=== PATIENT | male | born 1960 | race Hispanic/Latino ===

== ENCOUNTER 2022-04-07 21:12 | Emergency (ER) | END 2022-04-07 22:13 | disposition home or self-care (01) | LOC: ERS 21:12 | DX: S56.912A Strain of unspecified muscles, fascia and tendons at forearm level, left arm, initial encounter (principal); X50.9XXA Other and unspecified overexertion or strenuous movements or postures, initial encounter | CPT/HCPCS: 96372 ==

== ENCOUNTER 2023-10-15 07:58 | Day surgery (SDC) | payer BC ==
[2023-10-14 13:25] VITALS: BMI 27.4
[~2023-10-15 07:58] MED LIST: Fluorouracil 100 MG, Enoxaparin 25 MG, EPINEPHrine 0.3 MG in Ophthalmic Irrigation Solu... IRR SCH
[2023-10-15] MEDS ORDERED: PHENYLephrine 2.5% Ophth Soln 15 ml Bottle ONE (08:32)
[2023-10-15] MEDS ORDERED: Cyclopentolate 1% Opth Drop 2 ML BOT ONE (08:32)
[2023-10-15] MEDS ORDERED: Midazolam HCl 2 mg/2 ml Vial ONE (08:49)
[2023-10-15] MEDS ORDERED: fentaNYL 50 mcg/mL 1 mL Vial ONE ×2 (08:49→09:19)
[2023-10-15] MEDS ORDERED: CEFAZOLIN 1 GM VIAL ONE (09:06)
[2023-10-15] MEDS ORDERED: Maxitrol 0.1% Opth Oint 3.5 GM TUBE ONE (09:06)
[2023-10-15] MEDS ORDERED: Lidocaine 1% PF 5 ML VIAL ONE (09:06)
[2023-10-15] MEDS ORDERED: Lidocaine 4% PF 5 ML AMP ONE (09:06)
[2023-10-15] MEDS ORDERED: Triamcinolone 40 MG/ML VIAL ONE (09:06)
[2023-10-15] MEDS ORDERED: Bupivacaine 0.75% 10 ML VIAL ONE (09:06)
[2023-10-15] MEDS ORDERED: PROPOFOL 200 MG/20 ML VIAL ONE (09:06)
== END 2023-10-15 10:48 | disposition home or self-care (01) ==
LOC: SDC 07:58
PROVIDERS: ATTEND Ophthalmology Retina Specialist
PROC: 089430Z Drainage of Right Vitreous with Drainage Device, Percutaneous Approach (ICD-10-PCS; principal; 2023-10-15)
DX: H33.021 Retinal detachment with multiple breaks, right eye (principal)
CPT/HCPCS: 67025; J0171; J1650; J2250; J3010; J9190